=== PATIENT | male | born 1980 | race Caucasian/White ===

== ENCOUNTER 2018-02-01 14:09 | Emergency (ER) | payer MEDICAID, OTHER ==
[2018-02-01] MEDS: LIDOCAINE 1%/EPI 30 ML INJ INJ (16:35)
== END 2018-02-01 17:20 | disposition home or self-care (01) ==
LOC: FTE 14:09
DX: L02.511 Cutaneous abscess of right hand (principal); W45.8XXA Other foreign body or object entering through skin, initial encounter; Y92.9 Unspecified place or not applicable
CPT/HCPCS: 10060; 99284-25